=== PATIENT | male | born 1975 | race Caucasian/White ===

== ENCOUNTER 2021-04-21 11:40 | Outpatient (REF) | payer BC, SELFPAY ==
[2021-04-21 13:53] LABS: MANUAL DIFF FLAG NO
[2021-04-21 14:08] LABS: Basophils Percent Auto 0.4 % (0-2); Eosinophils Absolute Auto 0.1 X10*3/uL (0.0-0.4); Eosinophils Percent Auto 1.2 % (0-4); Hemoglobin 14.6 g/dl (14.0-18.0); Imm Gran Abs Auto 0.04 X10*3/uL (0.00-0.03); Imm Gran Pct Auto 0.4 % (0.0-0.4); Lymphocytes Absolute Auto 1.5 X10*3/uL (1.2-4.9); Lymphocytes Percent Auto 13.6 % (20-40); Mean Corpuscular Hemoglobin 32.1 pg (27.0-33.0); Mean Corpuscular Volume 94.5 fL (80-98); Mean Platelet Volume 12.8 fL (9.4-12.4); Monocytes Absolute Auto 1.2 X10*3/uL (0.1-1.2); Monocytes Percent Auto 10.3 % (2-11); Neutrophils Absolute Auto 8.4 X10*3/uL (2.0-8.3); Neutrophils Percent Auto 74.1 % (45-73); Platelet Count 226 X10*3/uL (160-400); Red Blood Count 4.55 X10*6/uL (4.60-5.80); Red Cell Distribution Width 11.8 % (11.0-16.0); White Blood Count 11.3 X10*3/uL (4.8-10.8)
[2021-04-21 14:18] LABS: Alanine Aminotransferase 17 U/L (0-40); Albumin Level 4.6 g/dL (3.5-5.0); Alkaline Phosphatase 68 U/L (39-117); Anion Gap 17 (12-20); Aspartate Amino Transferase 16 U/L (5-37); Bilirubin Total 0.8 mg/dL (0.0-1.0); Blood Urea Nitrogen 14 mg/dL (9-16); Calcium 9.7 mg/dL (8.4-10.2); Carbon Dioxide 24 mmol/L (22-29); Chloride 106 mmol/L (96-108); Estimated Glomerular Filt Rate > 60; Glucose Random 105 mg/dL (60-115); Potassium 4.4 mmol/L (3.3-5.1); Sodium 143 mmol/L (135-145); Total Protein 7.2 g/dL (6.5-8.0)
[2021-04-21 14:40] LABS: TSH reflex Free T4 1.02 uIU/mL (0.32-4.0)
== END 2021-04-21 11:41 | disposition home or self-care (01) ==
LOC: HO.HMGCLDS 11:40
PROVIDERS: Visit Provider Hospitalist
DX: M54.2 Cervicalgia (principal)
CPT/HCPCS: 36415; 80053; 84443; 85025

== ENCOUNTER 2021-04-30 19:35 | Emergency (ER) | payer BC, SELFPAY ==
--- NOTE | ~2021-04-30 | CT_ITS ---
EXAMINATION: CT SOFT TISSUE NECK WITH CONTRAST CLINICAL INFORMATION: Midline mass COMPARISON: None TECHNIQUE: Following the intravenous administration of 60 mL of Omnipaque 350 intravenous contrast, helical imaging was performed in the axial plane with generation of coronal and sagittal reformatted images. This CT examination was performed using dose optimization techniques as appropriate, variously including the following: *Automated exposure control *Adjustment of mA and/or kV according to patient size (this includes techniques or standardized protocols for targeted exams where dose is matched to indication/reason for exam; i.e. extremities or head) *Use of iterative reconstruction technique DLP: 1043 mGy-cm FINDINGS: There is a multiloculated cystic structure at the midline of the neck inferior to the hyoid and superior to the thyroid cartilage. This measures 3.7 x 3 x 4.3 cm. No cervical adenopathy is identified. The parotid glands are homogeneous in attenuation. The submandibular glands are normal. No contour abnormality or pathologic enhancement is seen within the oral cavity or pharyngeal mucosal space. The laryngeal structures are normal. The parapharyngeal fat is preserved. The carotid sheath vasculature opacify normally. No extra mucosal soft tissue mass or fluid collection is seen. No retropharyngeal fluid collection is seen. The thyroid gland is normal. The superior mediastinum is unremarkable. The lung apices are clear. The mastoid air cells and visualized portions of the paranasal sinuses are well-aerated. The temporomandibular joints are normal. No periapical disease is identified. No acute osseous abnormalities are seen. Small osteophytes with disc narrowing at C6-C7. The imaged portions of the brain parenchyma are unremarkable. CT/CT soft tissue neck w con IMPRESSION: Multiloculated complex cystic mass at the midline between the hyoid and thyroid cartilage. At this position, the appearance favors a thyroglossal duct cyst. This result was discussed with Margaret Bates MD by telephone at 05/01/2021 1:00 AM.
[2021-04-30 19:36] VITALS: BP 165/111; PULSE 86; RESP 16; TEMP 37.1; O2SAT 96
[2021-04-30 20:29] LABS: COVID-19 Test Negative (Negative); IDNOW Serial# 9DD0AD1C
--- NOTE | 2021-04-30 22:35 | ECG_ITS ---
Test Reason : TACHYCARDIA Blood Pressure : / mmHG Vent. Rate : 070 BPM Atrial Rate : 070 BPM P-R Int : 170 ms QRS Dur : 100 ms QT Int : 400 ms P-R-T Axes : 047 013 020 degrees QTc Int : 432 ms Normal sinus rhythm Normal ECG No previous ECGs available Referred By: Margaret Bates Electronically Signed By:MILAGROS FRANCES
--- NOTE | 2021-04-30 22:39 | ED_ITS ---
HPI - General Adult General Chief complaint: General Medical Stated complaint: high bp? Time Seen by Provider: 04/30/21 22:26 Source: patient Mode of arrival: ambulatory Limitations: no limitations History of Present Illness HPI narrative: Patient comes emergency room complaining of high blood pressure. Patient denies chest pain, no shortness of breath. Patient states that this evening he had palpitations Related Data Home Medications Medication Instructions Recorded Confirmed azithromycin 250 mg tablet 250 mg PO DIRECTED 04/21/21 clindamycin HCl 300 mg capsule 300 mg PO QID 04/21/21 nystatin-triamcinolone 100,000 appl TOPICAL BID 04/21/21 unit/g-0.1 % topical cream Previous Rx's Medication Instructions Recorded dexamethasone 4 mg tablet 4 mg PO .COMPLEX #18 tab 04/21/21 hydrochlorothiazide 25 mg tablet 25 mg PO DAILY #30 tab 05/01/21 Allergies Allergy/AdvReac Type Severity Reaction Status Date / Time No Known Allergies Allergy Verified 04/30/21 19:41 [facility] Social History Social History Advance Directives: No Physical Exam 2 Vital Signs: Vital Signs: Last Vital Signs Temp 98.8 F 04/30/21 19:36 Pulse 77 05/01/21 00:40 Resp 16 05/01/21 00:34 BP 152/92 H 05/01/21 00:40 Pulse Ox 97 05/01/21 00:34 Body Mass Index 30.0 Course Course Course Narrative: Patient's blood pressure is 139 systolic. Patient agrees to start blood pressure medication treatment, patient has had multiple blood pressure readings that are high in different settings. Patient instructed to follow-up with his primary care physician. Also, I discussed the CT scan with the patient, patient likely has from multiloculated complex cyst, likely a thyroglossal duct cyst. However, tomorrow in the morning and the radiologist we reviewed the images per Radiology recommendations. This was discussed with the patient. Patient instructed to follow-up with his primary care physician, as there may be an update in the radiology report. Patient aware. Medical Decision Making Lab Data Result diagrams: 04/30/21 22:57 04/30/21 22:57 Labs: Lab Results 04/30/21 04/30/21 04/30/21 Range/Units 19:42 22:57 22:57 WBC 9.6 (4.8-10.8) X10*3/uL RBC 5.13 (4.60-5.80) X10*6/uL Hgb 16.4 (14.0-18.0) g/dl Hct 47.3 (42-52) % MCV 92.2 (80-98) fL MCH 32.0 (27.0-33.0) pg MCHC 34.7 (31.0-36.0) g/dl RDW 11.7 (11.0-16.0) % Plt Count 293 D (160-400) X10*3/uL MPV 11.5 (9.4-12.4) fL Immature Gran % (Auto) 0.8 H (0.0-0.4) % Neut % (Auto) 58.8 (45-73) % Lymph % (Auto) 27.8 (20-40) % Kidder % (Auto) 10.1 (2-11) % Eos % (Auto) 2.3 (0-4) % Baso % (Auto) 0.2 (0-2) % Lymph # (Auto) 2.7 (1.2-4.9) X10*3/uL Kidder # (Auto) 1.0 (0.1-1.2) X10*3/uL Eos # (Auto) 0.2 (0.0-0.4) X10*3/uL Baso # (Auto) 0.0 (0.0-0.2) X10*3/uL Abs Immat Gran (auto) 0.08 H (0.00-0.03) X10*3/uL Absolute Neuts (auto) 5.6 (2.0-8.3) X10*3/uL Absolute Nucleated RBC 0.000 (0.0-0.012) X10*3/uL Nucleated RBC % (auto) 0.0 (0.0-0.2) /100WBC Sodium 142 (135-145) mmol/L Potassium 4.5 (3.3-5.1) mmol/L Chloride 102 (96-108) mmol/L Carbon Dioxide 29 (22-29) mmol/L Anion Gap 16 (12-20) BUN 17 H (9-16) mg/dL Creatinine 1.01 (0.5-1.4) mg/dL Estim Creat Clear Calc 121.1 Estimated GFR > 60 Random Glucose 102 (60-115) mg/dL Calcium 10.0 (8.4-10.2) mg/dL Total Bilirubin 0.7 (0.0-1.0) mg/dL Direct Bilirubin 0.2 (0.0-0.5) mg/dL AST 13 (5-37) U/L ALT 19 (0-40) U/L Alkaline Phosphatase 67 (39-117) U/L Troponin I High Sens (<3.5-35.0) ng/L Total Protein 7.0 (6.5-8.0) g/dL Albumin 4.5 (3.5-5.0) g/dL TSH 1.57 (0.32-4.0) uIU/mL COVID-19 (TESSIE) Negative (Negative) COVID-19 Clin Com See Note 04/30/21 Range/Units 22:57 WBC (4.8-10.8) X10*3/uL RBC (4.60-5.80) X10*6/uL Hgb (14.0-18.0) g/dl Hct (42-52) % MCV (80-98) fL MCH (27.0-33.0) pg MCHC (31.0-36.0) g/dl RDW (11.0-16.0) % Plt Count (160-400) X10*3/uL MPV (9.4-12.4) fL Immature Gran % (Auto) (0.0-0.4) % Neut % (Auto) (45-73) % Lymph % (Auto) (20-40) % Kidder % (Auto) (2-11) % Eos % (Auto) (0-4) % Baso % (Auto) (0-2) % Lymph # (Auto) (1.2-4.9) X10*3/uL Kidder # (Auto) (0.1-1.2) X10*3/uL Eos # (Auto) (0.0-0.4) X10*3/uL Baso # (Auto) (0.0-0.2) X10*3/uL Abs Immat Gran (auto) (0.00-0.03) X10*3/uL Absolute Neuts (auto) (2.0-8.3) X10*3/uL Absolute Nucleated RBC (0.0-0.012) X10*3/uL Nucleated RBC % (auto) (0.0-0.2) /100WBC Sodium (135-145) mmol/L Potassium (3.3-5.1) mmol/L Chloride (96-108) mmol/L Carbon Dioxide (22-29) mmol/L Anion Gap (12-20) BUN (9-16) mg/dL Creatinine (0.5-1.4) mg/dL Estim Creat Clear Calc Estimated GFR Random Glucose (60-115) mg/dL Calcium (8.4-10.2) mg/dL Total Bilirubin (0.0-1.0) mg/dL Direct Bilirubin (0.0-0.5) mg/dL AST (5-37) U/L ALT (0-40) U/L Alkaline Phosphatase (39-117) U/L Troponin I High Sens 3.7 (<3.5-35.0) ng/L Total Protein (6.5-8.0) g/dL Albumin (3.5-5.0) g/dL TSH (0.32-4.0) uIU/mL COVID-19 (TESSIE) (Negative) COVID-19 Clin Com Imaging Data CT of the soft tissue of the neck: Radiologist's impression: FINDINGS: There is a multiloculated cystic structure at the midline of the neck inferior to the hyoid and superior to the thyroid cartilage. This measures 3.7 x 3 x 4.3 cm. No cervical adenopathy is identified. The parotid glands are homogeneous in attenuation. The submandibular glands are normal. No contour abnormality or pathologic enhancement is seen within the oral cavity or pharyngeal mucosal space. The laryngeal structures are normal. The parapharyngeal fat is preserved. The carotid sheath vasculature opacify normally. No extra mucosal soft tissue mass or fluid collection is seen. No retropharyngeal fluid collection is seen. The thyroid gland is normal. The superior mediastinum is unremarkable. The lung apices are clear. The mastoid air cells and visualized portions of the paranasal sinuses are well-aerated. The temporomandibular joints are normal. No periapical disease is identified. No acute osseous abnormalities are seen. Small osteophytes with disc narrowing at C6-C7. The imaged portions of the brain parenchyma are unremarkable. CT/CT soft tissue neck w con IMPRESSION: Multiloculated complex cystic mass at the midline between the hyoid and thyroid cartilage. At this position, the appearance favors a thyroglossal duct cyst.? ECG Data Attestation: I personally reviewed and interpreted this ECG as follows: (Normal sinus rhythm, heart rate 70, no ST segment depression or elevation, nonspecific T-wave inversion in lead 3, QTC 430) Discharge Plan Discharge Clinical Impression: Thyroglossal duct cyst Hypertension Qualifiers: Hypertension type: unspecified Qualified Code(s): I10 - Essential (primary) hypertension Patient Disposition: Home, Self-Care Instructions: Hypertension (ED) Additional Instructions: Please follow-up with your primary care physician tomorrow. If you have any worsening or new symptoms, please return to the emergency room or call 911 Prescriptions: New hydrochlorothiazide 25 mg tablet 25 mg PO DAILY Qty: 30 RF: 0 No Action azithromycin 250 mg tablet 250 mg PO DIRECTED RF: 0 clindamycin HCl 300 mg capsule 300 mg PO QID RF: 0 nystatin-triamcinolone 100,000-0.1 unit/g-% cream topical BID RF: 0 dexamethasone 4 mg tablet 4 mg PO .COMPLEX Qty: 18 RF: 0
[2021-04-30 23:03] LABS: MANUAL DIFF FLAG NO
[2021-04-30 23:04] LABS: Basophils Percent Auto 0.2 % (0-2); Eosinophils Absolute Auto 0.2 X10*3/uL (0.0-0.4); Eosinophils Percent Auto 2.3 % (0-4); Hematocrit 47.3 % (42-52); Hemoglobin 16.4 g/dl (14.0-18.0); Imm Gran Abs Auto 0.08 X10*3/uL (0.00-0.03); Imm Gran Pct Auto 0.8 % (0.0-0.4); Lymphocytes Absolute Auto 2.7 X10*3/uL (1.2-4.9); Lymphocytes Percent Auto 27.8 % (20-40); Mean Corpuscular HGB Conc 34.7 g/dl (31.0-36.0); Mean Corpuscular Volume 92.2 fL (80-98); Mean Platelet Volume 11.5 fL (9.4-12.4); Monocytes Percent Auto 10.1 % (2-11); Neutrophils Absolute Auto 5.6 X10*3/uL (2.0-8.3); Neutrophils Percent Auto 58.8 % (45-73); Platelet Count 293 X10*3/uL (160-400); Red Blood Count 5.13 X10*6/uL (4.60-5.80); Red Cell Distribution Width 11.7 % (11.0-16.0); White Blood Count 9.6 X10*3/uL (4.8-10.8)
[2021-04-30 23:28] LABS: Troponin-I High Sensitivity 3.7 ng/L (<3.5-35.0)
[2021-04-30 23:36] LABS: Alanine Aminotransferase 19 U/L (0-40); Albumin Level 4.5 g/dL (3.5-5.0); Alkaline Phosphatase 67 U/L (39-117); Anion Gap 16 (12-20); Aspartate Amino Transferase 13 U/L (5-37); Bilirubin Direct 0.2 mg/dL (0.0-0.5); Bilirubin Total 0.7 mg/dL (0.0-1.0); Blood Urea Nitrogen 17 mg/dL (9-16); Carbon Dioxide 29 mmol/L (22-29); Chloride 102 mmol/L (96-108); Creatinine Clr Calc Pharmacy 121.1; Estimated Glomerular Filt Rate > 60; Glucose Random 102 mg/dL (60-115); Potassium 4.5 mmol/L (3.3-5.1); Sodium 142 mmol/L (135-145)
[2021-04-30 23:55] LABS: TSH reflex Free T4 1.57 uIU/mL (0.32-4.0)
[2021-05-01] MEDS: iohexoL 350 MG/ML 100 ML INFUS..BTL 60 ML IV (00:30)
[2021-05-01 00:34] VITALS: BP 152/92; PULSE 73; RESP 16; O2SAT 97
[2021-05-01 00:40] VITALS: BP 152/92; PULSE 77
== END 2021-05-01 01:57 | disposition home or self-care (01) ==
PROVIDERS: Emergency Provider Emergency Medicine; PCP Internal Medicine
DX: Q89.2 Congenital malformations of other endocrine glands (principal); I10 Essential (primary) hypertension; Z20.822 Contact with and (suspected) exposure to COVID-19
CPT/HCPCS: 36415; 70491; 80048; 80076; 84443; 84484; 85025; 87635; 93005; 99284; Q9967

== ENCOUNTER 2021-07-06 08:54 | Outpatient (REF) | payer BC, SELFPAY ==
[2021-07-06 12:02] LABS: Cholesterol 257 mg/dL; HDL Cholesterol 50 mg/dL; LDL Cholesterol Calculated 164 mg/dl; Triglycerides 215 mg/dL
== END 2021-07-06 08:55 | disposition home or self-care (01) ==
LOC: HO.HMGCLDS 08:54
PROVIDERS: PCP Internal Medicine; Visit Provider Internal Medicine
DX: I10 Essential (primary) hypertension (principal)
CPT/HCPCS: 36415; 80061

== ENCOUNTER 2022-07-10 09:44 | Outpatient (REF) | payer BC, SELFPAY ==
[2022-07-10 12:09] LABS: Alanine Aminotransferase 24 U/L (0-40); Anion Gap 16 (12-20); Aspartate Amino Transferase 23 U/L (5-37); Blood Urea Nitrogen 13 mg/dL (9-16); Calcium 9.9 mg/dL (8.4-10.2); Carbon Dioxide 29 mmol/L (22-29); Chloride 103 mmol/L (96-108); Cholesterol 285 mg/dL; Estimated Glomerular Filt Rate > 60; Glucose Fasting 100 mg/dL (60-99); HDL Cholesterol 63 mg/dL; LDL Cholesterol Calculated 196 mg/dl; Potassium 4.5 mmol/L (3.3-5.1); Sodium 143 mmol/L (135-145); Triglycerides 132 mg/dL
== END 2022-07-10 09:45 | disposition home or self-care (01) ==
LOC: HO.HMGCLDS 09:44
PROVIDERS: PCP Internal Medicine; Visit Provider Internal Medicine
DX: Z00.01 Encounter for general adult medical examination with abnormal findings (principal); I10 Essential (primary) hypertension; E78.2 Mixed hyperlipidemia
CPT/HCPCS: 36415; 80048; 80061; 84450; 84460

== ENCOUNTER → 2022-10-02 11:10 | Outpatient (BNVA) | payer BC, SELFPAY | PROVIDERS: PCP Internal Medicine; Visit Provider Nurse Practitioner Family | DX: Z13.89 Encounter for screening for other disorder (principal) ==

== ENCOUNTER 2022-11-29 10:56 | Outpatient (REF) | payer BC, SELFPAY ==
[2022-11-29 14:16] LABS: Alanine Aminotransferase 22 U/L (0-40); Aspartate Amino Transferase 21 U/L (5-37); Cholesterol 200 mg/dL; HDL Cholesterol 53 mg/dL; LDL Cholesterol Calculated 129 mg/dl; Triglycerides 90 mg/dL
== END 2022-11-29 10:57 | disposition home or self-care (01) ==
LOC: HO.HMGCLDS 10:56
PROVIDERS: PCP Internal Medicine; Visit Provider Internal Medicine
DX: E78.2 Mixed hyperlipidemia (principal)
CPT/HCPCS: 36415; 80061; 82550; 84450; 84460

== ENCOUNTER 2023-07-24 10:10 | Day surgery (SDC) | payer BC, SELFPAY ==
[2023-07-20 15:12] VITALS: BMI 30.7
--- NOTE | 2023-07-23 11:41 | HO.ANESPROP2 ---
Documented by User: Radha Fam NP 07/23/23 11:41 HPI - Anesthesia Eval Consult details Narrative: 47yo M for Colonoscopy PMFSH Active Problems Active Problems: All Active Problems (Updated 07/10/22 @ 09:45 by Enid Kinney MD) Mixed dyslipidemia (Acute) Essential hypertension (Acute) Past Medical History Medical History History of COVID-19 Mixed dyslipidemia Essential hypertension Thyroglossal duct cyst Family History Family History Other No pertinent family history in first degree relatives Surgical History Surgical History History of thyroglossal duct cyst removal Social History Social History Housing: House Patient Tobacco Use Status: Never used Tobacco e-Cigarette/Vaping Use: Never Used Second Hand Smoke Exposure: No Advance Directives: No Advance Directives Information Provided: Yes service: No Current occupational status: employed Cognitive needs: No Hearing needs: No Vision needs: No Meds Allergies Allergy/AdvReac Type Severity Reaction Status Date / Time Penicillins AdvReac Unknown Verified 10/02/22 11:23 Exam Exam Date and Time: July 23, 2023 1141 Height,Weight and Vital Signs: Height 6 ft 2.5 in Weight 109.769 kg Assessment and Plan Assessment Anesthesia Assessment: Chart Reviewed Documented by User: Guillermina Zapata MD 07/24/23 11:52 PMFSH Past Medical History Medical History History of COVID-19 Mixed dyslipidemia Essential hypertension Thyroglossal duct cyst Cognitive capacity: Family History Family History Other No pertinent family history in first degree relatives Surgical History Surgical History History of thyroglossal duct cyst removal History of Problems with Anesthesia: No Social History Social History Housing: House Patient Tobacco Use Status: Never used Tobacco e-Cigarette/Vaping Use: Never Used Second Hand Smoke Exposure: No Advance Directives: No Advance Directives Information Provided: Yes service: No Current occupational status: employed Cognitive needs: No Hearing needs: No Vision needs: No Meds Allergies Allergy/AdvReac Type Severity Reaction Status Date / Time Penicillins AdvReac Unknown Verified 10/02/22 11:23 Exam Airway Mallampati Class: II TM Dist: >3cm Neck ROM: Full Loose/Missing/Broken Teeth: No Heart: RRR Lungs: CTA Assessment and Plan Assessment Anesthesia Assessment: Anesthesia Plan Discussed Final Anesthetic Review History of Problems with Anesthesia: No NPO: Yes ASA Class: II Final Preanesthetic Review: Meds/Allgs Chart Reviewed, Consent Obtained/Reviewed and Anes Risks/Benef Reviewed Patient Risk: Low Procedure Risk: Low Anesthetic Plan Anesthetic Plan: MAC: Disposition: Standard PACU
[2023-07-24 10:44] VITALS: BP 143/87; PULSE 78; RESP 18; TEMP 36.9; O2SAT 97
--- NOTE | 2023-07-24 11:31 | P.HPSUR_ITS ---
Pre-Procedural Eval Section A Date of Service: 07/24/23 Section B Chief Complaint: Encounter for screening for malignant neoplasm of Relevant Family History (Specify if Yes): No Relevant Social History: None Present Medications: see Short Stay Collaborative assessment Medical History: Significant History (Essential hypertension History of COVID-19 Mixed dyslipidemia Thyroglossal duct cyst) History of Previous Operations: Relevant previous surgery/procedure and date(s) (cyst removal ) Allergies: Allergies Allergy/AdvReac Type Severity Reaction Status Date / Time Penicillins AdvReac Unknown Verified 10/02/22 11:23 Review of Systems Sugical H&P ROS: Negative: Constitution, Cardiovascular, Respiratory, Neurological, Psychiatric, Hem-Onc, Allergic/Immunologic, Gastrointestinal, Genitourinary, Musculoskeletal, Integumentary, Endocrine and Eyes/Ears/Nose/ Throat Exam Surgical H&P Exam: Normal: HEENT, Normal: Heart, Normal: Lungs, Normal: Extremities, Normal: Abdomen, Normal: Skin and Normal: Neurological Plan Diagnosis/Plan: Unchanged I have reviewed the history and physical and performed a pertinent physical examination on my patient. No changes have occurred unless specified. Time Spent With Patient Time: Total time managing care of this patient today ____ minutes.
--- NOTE | 2023-07-24 11:32 | P.OP_ITS ---
Operative Note Operative Note Date of Service: 07/24/23 Narrative: Operative Information Procedure Description: Colonoscopy Indication: screening Anesthesia: MAC COLONOSCOPY Instrument: Olympus variable stiffness ADULT scope 190L Colonoscopy Monitoring: Vital signs and clinical assessment, continuous EKG monitoring, Pulse oximetry, Carbon Dioxide monitoring and blood pressure monitoring were done throughout the procedure. Colon withdrawal time was 9 minutes. Procedure: The patient was placed in the left lateral decubitis position and pre-procedure medications were administered. After a digital rectal examination of the ano-rectum, the video colonoscope was inserted into the rectum and advanced through the colon to the cecum/TI. The colonoscope was slowly withdrawn in a retrograde panoramic fashion and the colon mucosa was carefully examined including a retroflexed view of the rectum. Findings and interventions are described below. Procedure Difficulty: easy Findings: Terminal Ileum-normal Cecum:normal Ascending Colon: diverticulosis noted Transverse Colon -normal Descending Colon:normal Sigmoid Colon: moderate diverticulosis Rectum: Retroflexion with small internal hemorrhoids, grade I Anorectum - normal Colon preparation: [place] Bowel Preparation Scale Right colon; 2 Transverse colon: 3 Left colon; 3 (0 = Unprepared colon segment with mucosa not seen due to solid stool that cannot be cleared. 1 = Portion of mucosa of the colon segment seen, but other areas of the colon segment not well seen due to staining, residual stool and/or opaque liquid. 2 = Minor amount of residual staining, small fragments of stool and/or opaque liquid, but mucosa of colon segment seen well. 3 = Entire mucosa of colon segment seen well with no residual staining, small fragments of stool or opaque liquid) Impression and Post Procedure Diagnosis: internal hemorrhoids diverticular disease Plan: High fiber diet leaflet Avoid straining at stool, epsom salts and sitz bath, anusol supps or cream Repeat Colonoscopy in 10 years or earlier if clinically indicated Above findings were reviewed with the patient and relevant handouts were provided if indicated.
[2023-07-24 12:10] VITALS: BP 115/71; PULSE 73; RESP 18; TEMP 37.3; O2SAT 98
[2023-07-24 12:25] VITALS: BP 121/82; PULSE 70; RESP 18; TEMP 36.9; O2SAT 96
== END 2023-07-24 13:01 | disposition home or self-care (01) ==
PROVIDERS: PCP Internal Medicine; Visit Provider Internal Medicine Gastroenterology
PROC: 0DJD8ZZ Inspection of Lower Intestinal Tract, Via Natural or Artificial Opening Endoscopic (ICD-10-PCS; CPT 45378; principal; 2023-07-24 12:10)
DX: Z12.11 Encounter for screening for malignant neoplasm of colon (principal); K57.30 Diverticulosis of large intestine without perforation or abscess without bleeding; K64.0 First degree hemorrhoids; I10 Essential (primary) hypertension; E78.2 Mixed hyperlipidemia; Z79.899 Other long term (current) drug therapy
CPT/HCPCS: 45378; J2704

== ENCOUNTER → 2023-07-24 10:10 | Outpatient (BNV) | payer BC, SELFPAY | PROVIDERS: PCP Internal Medicine; Visit Provider Internal Medicine Gastroenterology | DX: Z12.11 Encounter for screening for malignant neoplasm of colon (principal); K57.30 Diverticulosis of large intestine without perforation or abscess without bleeding; K64.0 First degree hemorrhoids | CPT/HCPCS: 45378 ==

== ENCOUNTER 2023-08-13 09:56 | Outpatient (REF) | payer BC, SELFPAY ==
[2023-08-13 14:17] LABS: Alanine Aminotransferase 18 U/L (0-40); Anion Gap 12 (12-20); Aspartate Amino Transferase 20 U/L (5-37); Blood Urea Nitrogen 15 mg/dL (9-16); Calcium 8.5 mg/dL (8.4-10.2); Carbon Dioxide 29 mmol/L (22-29); Chloride 105 mmol/L (96-108); Cholesterol 179 mg/dL (<200); Estimated Glomerular Filt Rate > 60; Glucose Fasting 96 mg/dL (60-99); HDL Cholesterol 54 mg/dL (>40); LDL Cholesterol Calculated 104 mg/dL (<100); Sodium 142 mmol/L (135-145); Triglycerides 109 mg/dL (<150)
== END 2023-08-13 09:57 | disposition home or self-care (01) ==
LOC: HO.HMGCLDS 09:56
PROVIDERS: PCP Internal Medicine; Visit Provider Internal Medicine
DX: E78.2 Mixed hyperlipidemia (principal); I10 Essential (primary) hypertension
CPT/HCPCS: 36415; 80048; 80061; 84450; 84460

== ENCOUNTER 2023-08-17 11:52 | Outpatient (AMB) | payer BC, SELFPAY ==
--- NOTE | 2023-08-17 12:16 | MHC.PC.OV ---
Vital Signs 08/17/23 12:17 Height 6 ft 2.5 in Weight 246 lb 2 oz BMI 31.2 BP 130/88 Blood Pressure Location Rt brachial Position Sitting Pulse 67 Pulse Source Pulse Oximeter Pulse Oximetry (%) 94 Oxygen Delivery Method Room Air Intake Visit Reasons: PE Intake Note: Pt is here for his Annual PE Allergies Penicillins Adverse Reaction (Verified 08/17/23 12:51) Unknown Medication List - Last Reconciled 08/17/23 by Enid Kinney MD bisacodyl (Dulcolax (bisacodyl)) 10 mg (2 x 5 mg) PO ONCE 1 day hydrochlorothiazide 25 mg PO DAILY polyethylene glycol 3350 (Miralax) 238 grams PO ONCE rosuvastatin 5 mg PO DAILY Tobacco use date assessed: 08/17/23 Dental Screening Dental Screen Date: 08/17/23 Did you have a dental visit in the last 12 months?: Yes Did you have a dental problem in the last 6 months where you did not have access to dental care?: No Was dental information given to patient?: Patient has dentist HPI PE HPI Details 48-year-old male here today for his physical exam. He has hypertension currently on hydrochlorothiazide 25 mg daily and lipidemia currently on rosuvastatin 5 mg once a day. He has been feeling well, with no complaints at present time. Recently was seen by GI and will be scheduled for his initial screening colonoscopy peer [facility] Medical History (Updated 10/07/23 @ 23:25 by Enid Kinney MD) Obesity (BMI 30.0-34.9) History of COVID-19 Mixed dyslipidemia Essential hypertension Thyroglossal duct cyst Surgical History History of thyroglossal duct cyst removal Family History Other No pertinent family history in first degree relatives Social History Housing: House Patient Tobacco Use Status: Never used Tobacco e-Cigarette/Vaping Use: Never Used Second Hand Smoke Exposure: No service: No Current occupational status: employed Cognitive needs: No Hearing needs: No Vision needs: No Questionnaire PHQ-9 Over the last 2 weeks, how often have you been bothered by any of the following problems? 1. Little interest or pleasure in doing things: not at all 2. Feeling down, depressed, or hopeless: not at all 3. Trouble falling or staying asleep, or sleeping too much: not at all 4. Feeling tired or having little energy: not at all 5. Poor appetite or overeating: not at all 6. Feeling bad about yourself - or that you are a failure or have let yourself or your family down: not at all 7. Trouble concentrating on things, such as reading the newspaper or watching television: not at all 8. Moving or speaking so slowly that other people could have noticed. Or the opposite - being so fidgety or restless that you have been moving around a lot more than usual: not at all 9. Thoughts that you would be better off or of hurting yourself in some way: not at all Total score: 0 Depression Screening Interpretation: Negative Depression Screening Done: Yes 19636 - PHQ-9 Billing: Yes Source: Developed by Drs. Yared Sutherland, Cristin Miranda, Yony Chopra and colleagues, with an educational jovanny from [employer]. Thrive Questionnaire Date Thrive assessed: 08/17/23 I am a: Patient What is your living situation today?: I have a steady place to live Within the past 12 months, did the food you bought not last and you didn't have the money to get more?: Never true Within the past 12 months, did you worry whether your food would run out before you got money to buy more?: Never true Do you have trouble paying for medicines?: No Do you have trouble getting transportation to medical appointments?: No Do you have trouble paying your heating and electricity bill?: No Do you have trouble taking care of your child, family member or friend?: No Do you have trouble with day-to-day activities such as bathing, preparing meals, shopping, managing finances, etc.?: No Are you currently unemployed and looking for a job?: No Are you interested in more education?: No AUDIT C Alcohol Use Questionnaire (AUDIT-C) 1. How often do you have a drink containing alcohol?: Monthly or less 2. How many drinks containing alcohol do you have on a typical day when you are drinking?: 1 or 2 3. How often do you have six or more drinks on one occasion?: Never Total Score: 1 KALIA-7 AMB Questionnaire KALIA-7 Date KALIA - 7 assessed: 08/17/23 Feeling nervous, anxious, or on edge: 0 = Not at all Not being able to stop or control worryin = Not at all Worrying too much about different things: 0 = Not at all Trouble relaxin = Not at all Being so restless that it is hard to sit still: 0 = Not at all Becoming easily annoyed or irritable: 0 = Not at all Feeling afraid as if something awful might happen: 0 = Not at all Total KALIA-7 score (0-4 normal; 5-9 mild; 10-14 moderate; 15-21 severe): 0 Source: Developed by Drs. Yared Sutherland, Cristin Miranda, Yony Chopra and colleagues, with an educational jovanny from [employer]. KALIA-7 Assessment Billing KALIA-7 Assessment Tool: KALIA-7 Assessment 42706 Review of Systems Const Denies fatigue, Denies headache(s) and Denies lethargy Eyes Denies change in vision ENT Reports no additional complaints and Denies headache(s) Card Denies chest pain, Denies rapid heart rate, Denies irregular heart rhythm, Denies lightheadedness and Denies dyspnea Resp Denies cough and Denies dyspnea GI Denies abdominal pain, Denies melena, Denies bloating, Denies change in bowel habits, Denies dyspepsia, Denies heartburn and Denies nausea Reports no additional complaints Musc Reports no additional complaints Skin/Breast Denies lesions and Denies rash Neuro Reports no additional complaints and Denies headache(s) Psych Reports no additional complaints Endo Reports no additional complaints and Denies fatigue Eduardo/Lymph Reports no additional complaints Aller/Immun Reports no additional complaints Physical exam (Primary Care) Vital Signs: Last Vital Signs Pulse 67 08/17/23 12:17 BP 130/88 08/17/23 12:17 Pulse Ox 94 08/17/23 12:17 Oxygen Delivery Method Room Air 08/17/23 12:17 BMI result Body Mass Index 31.2 BMI Assessment/Plan discussion: High BMI High, discussed plan: lifestyle, weight reduction, dietary and physical activity Tobacco/Smoking Status: Tobacco use Status Tobacco use date assessed 08/17/23 08/17/23 12:22 Patient Tobacco Use Status Never used Tobacco 08/17/23 12:22 e-Cigarette/Vaping Use Never Used 08/17/23 12:22 Depression Screening Interpretation: Negative Thrive Assessment: Date of Thrive Assessment Date Thrive assessed 07/10/22 08/17/23 12:22 Const Other: Alert oriented x3, no acute cardiorespiratory distress ambulatory gait Nutritional Appearance: obese Orientation/consciousness: patient oriented x3 HENMT Ears: hearing grossly normal bilaterally, external ears normal, TM's normal bilaterally and EAC's normal General nose exam: Normal external nose present Face and sinus: Yes face symmetric Mouth: Normal oral and palatal mucosa present and moist mucous membranes Eyes General: appearance normal, both eyes and all related structures Neck Other: Supple, no lymphadenopathy, well-healed surgical scar on anterior aspect of neck, thyroid gland nonpalpable Neck: Yes no meningeal signs Chest Chest palpation & inspection: normal inspection of the chest and normal palpation of entire chest wall Resp Auscultation: clear to auscultation bilaterally Cardio Other: S1-S2 present regular rate and rhythm no murmurs GI Inspection: Yes normal to inspection Palpation (GI): Soft to palpation, nontender, no guarding and no masses General: Yes no CVA tenderness Back/Spine/Pelvis Back: no CVA tenderness and No back tenderness Skin General skin exam: no rashes or lesions noted Neuro General: patient oriented x3, gait normal, Normal light touch and pain sensation, no meningeal signs, no focal motor deficits and CN's II-XI intact bilaterally Extrem General: Yes full ROM, Yes no joint enlargement, Yes no pedal edema, Yes no calf tenderness and Yes normal gait Psych Appearance: grossly normal and well kempt Mental Status: mental status grossly normal Speech and movement: Normal speech and movement present Affect: normal affect Attitude: cooperative Thought process: Normal thought process present Results Reviewed Results Reviewed: ENTERED: 08/13/23-1015 PAUL ZARAGOZA: ORDERED: Met Prof Fast, AST, ALT, Lipid Panel Test Result Flag Reference Site Sodium 142 135-145 mmol/L Potassium 4.0 3.3-5.1 mmol/L CL 105 96-108 mmol/L CO2 29 22-29 mmol/L Gap 12 12-20 BUN 15 9-16 mg/dL Creat 1.13 0.5-1.4 mg/dL EGFR > 60 NOTE: For -[place] individuals, multiply the result by 1.210. Chronic Kidney Disease: Estimated GFR < 60 mL/min/1.73m2 Severe Kidney Disease: Estimated GFR < 15 mL/min/1.73m2 FBS 96 60-99 mg/dL CA 8.5 # 8.4-10.2 mg/dL AST (GOT) 20 5-37 U/L ALT (GPT) 18 0-40 U/L Triglyceride 109 <150 mg/dL Desirable Triglyceride: less than 150 mg/dL Borderline High Triglyceride 150-199 mg/dL High Triglyceride: 200-499 mg/dL Very High Triglyceride: greater than or equal to 5OO mg/dL Cholesterol 179 <200 mg/dL Desirable Cholesterol: less than 200 mg/dL Borderline High Cholesterol: 200-239 mg/dL High Cholesterol: greater than 239 mg/dL LDL Calculated 104 H <100 mg/dL Desirable LDL: less than 100 mg/dL Near Optimal/Above Optimal LDL: 110-129 mg/dL Borderline High LDL: 130-159 mg/dL High LDL: 160-189 mg/dL Very High LDL: greater than or equal to 190 mg/dL HDL 54 >40 mg/dL Desirable HDL: greater than 40 mg/dL Note: This HDL assay may give artificially low results in patients with liver disease. Assessment and Plan Assessment & Plan (1) Annual visit for general adult medical examination with abnormal findings: Code(s): Z00.01 - Encounter for general adult medical examination with abnormal findings Plan: I Will check appropriate labs. Continue regular dental visit every 6 months and regular eye exams, at least every 2 years. Advised to do self-testicular exam to check for any mass . Has been seen by GI and will be scheduled for a screening colonoscopy has had COVID vaccines , reminded to get his booster, his yearly flu vaccine and an updated Tdap. (2) Essential hypertension: Code(s): I10 - Essential (primary) hypertension Plan: Blood pressure at goal of less than 130/80. Continue with current medication. Reinforced importance of following a low sodium diet, getting regular exercise, and lowering stress levels. (3) Mixed dyslipidemia: Code(s): E78.2 - Mixed hyperlipidemia Plan: Recent fasting labs showed lipids results are within normal limits. Continue with rosuvastatin 5 mg once a day. Reinforced importance of following a low-cholesterol diet and getting regular exercise. (4) Obesity (BMI 30.0-34.9): Code(s): E66.9 - Obesity, unspecified Plan: Recommended focusing on improving your health instead of dieting. : Eat Mediterranean diet, limit foods high in fat, sugar, and calories, eat slowly, pay attention to portion sizes, plan your meals ahead of time, start regular physical activity 150 minutes of moderate intensity exercise or 90 minutes/week of cardiovascula rexercise Medications: Refilled rosuvastatin 5 mg PO DAILY 90 tabs 3RF hydrochlorothiazide 25 mg PO DAILY 90 tabs 4RF Coding Level of Care Code Est Pt Prev Care 40-64y(43550) Diagnoses Annual visit for general adult medical examination with abnormal findings Z00.01 Essential hypertension I10 Mixed dyslipidemia E78.2 Obesity (BMI 30.0-34.9) E66.9 Additional Codes KALIA-7 Assessment Billing - KALIA-7 Assessment Tool: KALIA-7 Assessment 38474 ([id number])
[2023-08-17 12:17] VITALS: BP 130/88; PULSE 67; O2SAT 94; BMI 31.2
== END 2023-08-17 15:07 | disposition home or self-care (01) ==
PROVIDERS: PCP Internal Medicine; Visit Provider Internal Medicine
DX: Z00.00 Encounter for general adult medical examination without abnormal findings (principal); I10 Essential (primary) hypertension; E66.9 Obesity, unspecified; Z68.31 Body mass index [BMI] 31.0-31.9, adult; E78.2 Mixed hyperlipidemia
CPT/HCPCS: 99396

== ENCOUNTER 2024-08-25 09:17 | Outpatient (REF) | payer BC, SELFPAY ==
--- OUTSIDE RECORDS SUMMARY | 2024-08-25 09:20 | XMS_ITS ---
Author Name [facility] Organization Unknown History of Medication Use Medication Directions Dispensed Refills Start Date End Date Stat triamcinolone (KENALOG) 0.5 % cream Apply topically 2 (two) times a day. 05/09/2024 active hydroCHLOROthiazide (HYDRODIURIL) 25 MG tablet Take 25 mg by mouth daily. 05/09/2024 active Problems Problem Status Onset Date Problem Type Date of Resoluti on Source Multiple insect bites active EncounterDiagnosisAct [facility]
[2024-08-25 10:32] LABS: Alanine Aminotransferase 24 U/L (0-40); Anion Gap 10 (12-20); Aspartate Amino Transferase 23 U/L (5-37); Blood Urea Nitrogen 16 mg/dL (9-16); Calcium 9.8 mg/dL (8.4-10.2); Carbon Dioxide 32 mmol/L (22-29); Chloride 102 mmol/L (96-108); Cholesterol 269 mg/dL (<200); Estimated Glomerular Filt Rate > 60; Glucose Fasting 99 mg/dL (60-99); HDL Cholesterol 52 mg/dL (>40); LDL Cholesterol Calculated 184 mg/dL (<100); Potassium 4.1 mmol/L (3.3-5.1); Sodium 140 mmol/L (135-145); Triglycerides 168 mg/dL (<150)
== END 2024-08-25 09:18 | disposition home or self-care (01) ==
LOC: HO.HMGCLDS 09:17
PROVIDERS: PCP Internal Medicine; Visit Provider Internal Medicine
DX: E66.9 Obesity, unspecified (principal); E78.2 Mixed hyperlipidemia; I10 Essential (primary) hypertension
CPT/HCPCS: 36415; 80048; 80061; 84450; 84460

== ENCOUNTER 2024-08-27 12:18 | Outpatient (AMB) | payer BC, SELFPAY ==
--- NOTE | 2024-08-27 12:54 | MHC.PC.OV ---
Vital Signs 08/27/24 13:12 Height 6 ft 2 in Weight 244 lb BMI 31.3 BP 124/86 Blood Pressure Location Rt brachial Position Sitting Pulse 75 Pulse Source Pulse Oximeter Pulse Oximetry (%) 98 Oxygen Delivery Method Room Air Intake Visit Reasons: Annual PE Intake Note: Pt is here today for his PE: last colonoscopy 07/24/23 Allergies Penicillins Adverse Reaction (Verified 08/28/24 01:59) Unknown Medication List - Last Reconciled 08/28/24 by Enid Kinney MD hydrochlorothiazide 25 mg PO DAILY rosuvastatin 5 mg PO DAILY Tobacco use date assessed: 08/27/24 Dental Screening Dental Screen Date: 08/27/24 Did you have a dental visit in the last 12 months?: Yes Did you have a dental problem in the last 6 months where you did not have access to dental care?: No Was dental information given to patient?: Patient has dentist HPI Annual PE HPI Details 49 year-old male here today for his physical exam. He has hypertension currently on hydrochlorothiazide 25 mg daily positive pressure stable and controlled on present treatment. He has dyslipidemia, currently on rosuvastatin 5 mg once a day. Patient states that he lost his prescription at just started taking rosuvastatin again after several months. Latest fasting labs showed elevation again in his LDL cholesterol. He has been trying to adhere to healthy eating habits, and stays active, engages in Martial arts. Had a screening colonoscopy done [address] Pimentel which showed benign findings, repeat due again in 2032. [facility] Medical History Obesity (BMI 30.0-34.9) History of COVID-19 Mixed dyslipidemia Essential hypertension Thyroglossal duct cyst Surgical History History of thyroglossal duct cyst removal Family History Other No pertinent family history in first degree relatives Social History Housing: House Patient Tobacco Use Status: Never used Tobacco e-Cigarette/Vaping Use: Never Used Second Hand Smoke Exposure: No service: No Current occupational status: employed Cognitive needs: No Hearing needs: No Vision needs: Yes Questionnaire PHQ-9 Over the last 2 weeks, how often have you been bothered by any of the following problems? 1. Little interest or pleasure in doing things: not at all 2. Feeling down, depressed, or hopeless: not at all 3. Trouble falling or staying asleep, or sleeping too much: not at all 4. Feeling tired or having little energy: not at all 5. Poor appetite or overeating: not at all 6. Feeling bad about yourself - or that you are a failure or have let yourself or your family down: not at all 7. Trouble concentrating on things, such as reading the newspaper or watching television: not at all 8. Moving or speaking so slowly that other people could have noticed. Or the opposite - being so fidgety or restless that you have been moving around a lot more than usual: not at all 9. Thoughts that you would be better off or of hurting yourself in some way: not at all Total score: 0 Depression Screening Interpretation: Negative Depression Screening Done: Yes 11553 - PHQ-9 Billing: Yes Source: Developed by Drs. Yared Sutherland, Cristin Miranda, Yony Chopra and colleagues, with an educational jovanny from [employer]. Thrive Questionnaire Date Thrive assessed: 08/17/23 I am a: Patient What is your living situation today?: I have a steady place to live Within the past 12 months, did the food you bought not last and you didn't have the money to get more?: Never true Within the past 12 months, did you worry whether your food would run out before you got money to buy more?: Never true Do you have trouble paying for medicines?: No Do you have trouble getting transportation to medical appointments?: No Do you have trouble paying your heating and electricity bill?: No Do you have trouble taking care of your child, family member or friend?: No Do you have trouble with day-to-day activities such as bathing, preparing meals, shopping, managing finances, etc.?: No Are you currently unemployed and looking for a job?: No Are you interested in more education?: No Please select the resources that you would like help with: None Currently or been in a relationship where the following occur: No concerns reported THRIVE Score: 0 AUDIT C Alcohol Use Questionnaire (AUDIT-C) 1. How often do you have a drink containing alcohol?: 2-4 times a month 2. How many drinks containing alcohol do you have on a typical day when you are drinking?: 1 or 2 3. How often do you have six or more drinks on one occasion?: Less than monthly Total Score: 3 KALIA-7 AMB Questionnaire KALIA-7 Date KALIA - 7 assessed: 08/17/23 Feeling nervous, anxious, or on edge: 0 = Not at all Not being able to stop or control worryin = Not at all Worrying too much about different things: 0 = Not at all Trouble relaxin = Not at all Being so restless that it is hard to sit still: 0 = Not at all Becoming easily annoyed or irritable: 0 = Not at all Feeling afraid as if something awful might happen: 0 = Not at all Total KALIA-7 score (0-4 normal; 5-9 mild; 10-14 moderate; 15-21 severe): 0 Source: Developed by Drs. Yared Sutherland, Cristin Miranda, Yony Chopra and colleagues, with an educational jovanny from [employer]. KALIA-7 Assessment Billing KALIA-7 Assessment Tool: KALIA-7 Assessment 40033 Review of Systems Const Denies fatigue, Denies headache(s) and Denies lethargy Eyes Denies change in vision ENT Reports no additional complaints and Denies headache(s) Card Denies chest pain, Denies rapid heart rate, Denies irregular heart rhythm, Denies lightheadedness and Denies dyspnea Resp Denies cough and Denies dyspnea GI Denies abdominal pain, Denies melena, Denies bloating, Denies change in bowel habits, Denies dyspepsia, Denies heartburn and Denies nausea Reports no additional complaints Musc Reports no additional complaints Skin/Breast Denies lesions and Denies rash Neuro Reports no additional complaints and Denies headache(s) Psych Reports no additional complaints Endo Reports no additional complaints and Denies fatigue Eduardo/Lymph Reports no additional complaints Aller/Immun Reports no additional complaints Physical exam (Primary Care) Vital Signs: Last Vital Signs Pulse 75 08/27/24 13:12 BP 124/86 08/27/24 13:12 Pulse Ox 98 08/27/24 13:12 Oxygen Delivery Method Room Air 08/27/24 13:12 BMI result Body Mass Index 31.3 BMI Assessment/Plan discussion: High BMI High, discussed plan: lifestyle, weight reduction, dietary and physical activity Tobacco/Smoking Status: Tobacco use Status Tobacco use date assessed 08/27/24 08/27/24 13:18 Patient Tobacco Use Status Never used Tobacco 08/27/24 12:54 e-Cigarette/Vaping Use Never Used 08/27/24 12:54 PHQ-9: PHQ-9 Score PHQ-9: Total score 0 08/27/24 13:23 Depression Screening Interpretation: Negative Thrive Assessment: Date of Thrive Assessment Date Thrive assessed 08/17/23 08/27/24 12:54 Currently or been in a relationship where the following occur: No concerns reported Const Other: Alert oriented x3, no acute cardiorespiratory distress ambulatory gait Nutritional Appearance: obese Orientation/consciousness: patient oriented x3 HENMT Ears: external ears normal, TM's normal bilaterally and EAC's normal General nose exam: Normal external nose present Face and sinus: Yes face symmetric Mouth: Normal oral and palatal mucosa present and moist mucous membranes Eyes General: appearance normal, both eyes and all related structures Neck Other: Supple, no lymphadenopathy, well-healed surgical scar on anterior aspect of neck, thyroid gland nonpalpable Neck: Yes no meningeal signs Chest Chest palpation & inspection: normal inspection of the chest and normal palpation of entire chest wall Resp Auscultation: clear to auscultation bilaterally Cardio Other: S1-S2 present regular rate and rhythm no murmurs GI Inspection: Yes normal to inspection Palpation (GI): Soft to palpation, nontender, no guarding and no masses General: Yes no CVA tenderness Back/Spine/Pelvis Back: no CVA tenderness and No back tenderness Skin General skin exam: no rashes or lesions noted Neuro General: patient oriented x3, gait normal, Normal light touch and pain sensation, no meningeal signs, no focal motor deficits and CN's II-XI intact bilaterally Extrem General: Yes full ROM, Yes no joint enlargement, Yes no pedal edema, Yes no calf tenderness and Yes normal gait Psych Appearance: grossly normal and well kempt Mental Status: mental status grossly normal Speech and movement: Normal speech and movement present Affect: normal affect Attitude: cooperative Thought process: Normal thought process present Coding Level of Care Code Est Pt Prev Care 40-64y(57229) Diagnoses Annual visit for general adult medical examination with abnormal findings Z00.01 Mixed dyslipidemia E78.2 Essential hypertension I10 Obesity (BMI 30.0-34.9) E66.9 Additional Codes PHQ-9 - 94347 - PHQ-9 Billing: Yes ([id number]) KALIA-7 Assessment Billing - KALIA-7 Assessment Tool: KALIA-7 Assessment [id number] ([id number]) Assessment & Plan Assessment & Plan (1) Annual visit for general adult medical examination with abnormal findings: Code(s): Z00.01 - Encounter for general adult medical examination with abnormal findings Plan: Recent fasting lab results reviewed with patient. Recommended dental visit every 6 months and regular eye exams, at least every 2 years. Take adequate calcium in diet and vitamin-D 3 at 2000 IU per cap once a day, in addition to weight-bearing exercises to help maintain good muscle tone and weight control. Instructed to do self-testicular exam check for any mass. Reminded to get his yearly flu vaccine and COVID booster. Repeat screening colonoscopy [place] [address] Pimentel (2) Mixed dyslipidemia: Code(s): E78.2 - Mixed hyperlipidemia Category: Medical Plan: Reviewed recent fasting lab results with patient. Reinforced importance of staying compliant with medication, continued on rosuvastatin 5 mg once a day and combined this with adhering to healthy eating habits and getting regular exercise. Repeat fasting lipids again in 12/2024 (3) Essential hypertension: Code(s): I10 - Essential (primary) hypertension Category: Medical Plan: Blood pressure at goal of less than 130/80. Continue hydrochlorothiazide 25 mg daily. Reinforced importance of following a low sodium diet, getting regular exercise, and lowering stress levels. (4) Obesity (BMI 30.0-34.9): Code(s): E66.9 - Obesity, unspecified Category: Medical Plan: Continue with the use to healthy eating habits and regular exercise to promote weight loss. Recommended focusing on improving your health instead of dieting. : Eat Mediterranean diet, limit foods high in fat, sugar, and calories, eat slowly, pay attention to portion sizes, plan your meals ahead of time, Orders: Orders Alanine Aminotransferase 12/09/24 E78.2 - Mixed hyperlipidemia Aspartate Amino Transferase 04/01/25 E78.2 - Mixed hyperlipidemia Lipid Panel 12/09/24 E78.2 - Mixed hyperlipidemia Medications: Refilled hydrochlorothiazide 25 mg PO DAILY 90 tabs 4RF rosuvastatin 5 mg PO DAILY 90 tabs 3RF
[2024-08-27 13:12] VITALS: BP 124/86; PULSE 75; O2SAT 98; BMI 31.3
== END 2024-08-27 15:21 | disposition home or self-care (01) ==
PROVIDERS: PCP Internal Medicine; Visit Provider Internal Medicine
DX: Z00.00 Encounter for general adult medical examination without abnormal findings (principal); E78.2 Mixed hyperlipidemia; E66.9 Obesity, unspecified; Z68.31 Body mass index [BMI] 31.0-31.9, adult; I10 Essential (primary) hypertension

== ENCOUNTER → 2024-08-27 12:18 | Outpatient (BNVA) | payer BC, SELFPAY | PROVIDERS: PCP Internal Medicine; Visit Provider Internal Medicine | DX: Z00.01 Encounter for general adult medical examination with abnormal findings (principal); E78.2 Mixed hyperlipidemia; I10 Essential (primary) hypertension; E66.9 Obesity, unspecified; Z68.31 Body mass index [BMI] 31.0-31.9, adult; Z79.899 Other long term (current) drug therapy | CPT/HCPCS: 96127 ==